=== PATIENT | female | born 1960 | race Caucasian/White ===

== ENCOUNTER 2024-04-22 07:00 | Outpatient (CLI) | payer MEDICAID ==
--- NOTE | 2024-04-25 22:12 | XRAY Report ---
PROCEDURE: Pelvis 1-2V INDICATIONS: STRAIN OF LOW BACK TECHNIQUE: 1 view(s) of the pelvis acquired. COMPARISON: None. FINDINGS: Bones: No fractures or dislocations. No suspicious bony lesions. Mild symmetric axial hip joint s pace narrowing. 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 Soft tissues: Visualized bowel gas pattern is normal. No suspicious soft tissue calcifications. L arge pelvic calcification likely calcified uterine fibroid. IMPRESSION: Mild symmetric hip joint degeneration. Probable calcified fibroid. If indicated, ultrasound could be performed for confirmation. Reviewed by: JOSE D Weston on 04/25/2024 10:10 PM PDT Approved by: Minnie Arambula MD on 04/25/2024 10:10 PM PDT Station ID: [id number]
== END 2024-04-22 23:59 | disposition home or self-care (01) ==
LOC: DI.S 07:00
PROVIDERS: ATTEND Emergency Medicine
DX: S39.012A Strain of muscle, fascia and tendon of lower back, initial encounter (principal); M16.0 Bilateral primary osteoarthritis of hip

== ENCOUNTER 2024-05-09 09:01 | Outpatient (CLI) | payer MEDICAID ==
[2024-05-09] MEDS ORDERED: DIATRIZOATE MEGLU/DIATRIZO SOD 30 ML BOTTLE PO ONE (09:08)
[2024-05-09] MEDS ORDERED: iohexoL-300 100 ML VIAL ONE (09:08)
[2024-05-09 09:42] LABS: CREATININE 0.7 mg/dL (0.6-1.3)
[2024-05-09] MEDS: DIATRIZOATE MEGLU/DIATRIZO SOD 30 ML BOTTLE PO ONE (11:54)
[2024-05-09] MEDS: iohexoL-300 100 ML VIAL IVP ONE (11:54)
--- NOTE | 2024-05-13 20:41 | CT Report ---
PROCEDURE: Abdomen/Pelvis W INDICATIONS: PELVIC MASS CONTRAST: 100 mL Omnipaque 300 TECHNIQUE: After the administration of intravenous contrast, a CT scan of the abdomen and pelvis was performed. Images were recorded and evaluated at appropriate window settings. Reformats: coronal and sagittal. F or radiation dose reduction, the following was used: automated exposure control, adjustment of mA and /or kV according to patient size. COMPARISON: None. FINDINGS: Image quality: Diagnostic. Lower chest: Unremarkable. Liver: 9 mm hypodense lesion within segment 8 of the liver and a smaller hypodense lesion within segm ent 5 likely cysts versus hemangiomas. No definite solid hepatic mass lesion. Gallbladder: No calcified gallstones. No gallbladder wall thickening or pericholecystic fluid. Biliary tree: No intrahepatic or extrahepatic dilation, accounting for age. Spleen: No splenomegaly. Pancreas: No solid pancreatic mass or pancreatic duct dilatation. Adrenals: No adrenal nodule. Kidneys and ureters: No solid renal mass. No renal calculi. No evidence of hydronephrosis. Stomach, bowel and peritoneum: Small large bowel appear normal in caliber without evidence of bowel o bstruction. No abdominal or pelvic fluid collections to suggest abscess. No evidence of pneumoperiton eum. Lymph nodes: No central or retroperitoneal adenopathy. Vessels: No infrarenal aortic aneurysm. Patent portal vein. PELVIS Reproductive organs: The uterus lobulated containing several masses, some of which demonstrating jovani pheral or stippled calcifications and compatible with calcified fibroids. This corresponds to the abn ormality seen on previous pelvic radiograph of 04/22/2024. Bladder: No abnormal wall thickening, accounting for underdistention. Pelvic lymph nodes: No pelvic adenopathy by size criteria. Bones: No aggressive osseous abnormality. Other: No significant ventral or inguinal hernia. IMPRESSION: 1. Lobulated uterus containing several partially exophytic masses, some of which demonstrating periph eral and stippled calcifications corresponding to abnormalities seen on prior pelvic radiograph of and compatible with fibroids. 2. No acute abnormality within the abdomen or pelvis. Reviewed by: Lopez Miguel MD on 05/09/2024 3:39 PM PDT Approved by: Lopez Miguel MD on 05/09/2024 3:39 PM PDT Station ID: [id number]
== END 2024-05-09 09:02 | disposition home or self-care (01) ==
LOC: LAB 09:01
PROVIDERS: ATTEND Nurse Practitioner Gerontology
DX: R19.00 Intra-abdominal and pelvic swelling, mass and lump, unspecified site (principal); R93.89 Abnormal findings on diagnostic imaging of other specified body structures
CPT/HCPCS: 36415; 74177; 82565; Q9963; Q9967